=== PATIENT | female | born 1980 | race Two or more races ===

== ENCOUNTER 2022-06-30 09:13 | Emergency (ER) | payer OTHER ==
[~2022-06-30] VITALS: Ht 170.2 cm; Wt 79.4 kg
[2022-06-30 09:23] VITALS: BP 140/94
[2022-06-30] MEDS ORDERED: CYCL5TAB PO (09:54)
[2022-06-30] MEDS ORDERED: IBUP-1955 PO (09:54)
--- NOTE | 2022-06-30 10:11 | NUR ---
Patient discharged to home in stable condition. Written and verbal after care instructions given. Patient verbalizes understanding of instruction.
== END 2022-06-30 10:11 | disposition home or self-care (01) ==
LOC: ER 09:21
DX: S16.1XXA Strain of muscle, fascia and tendon at neck level, initial encounter (principal); S46.911A Strain of unspecified muscle, fascia and tendon at shoulder and upper arm level, right arm, initial encounter; V49.69XA Unspecified car occupant injured in collision with other motor vehicles in traffic accident, initial encounter; Y93.89 Activity, other specified; Y92.413 State road as the place of occurrence of the external cause; Y99.8 Other external cause status

== ENCOUNTER 2023-12-10 11:23 | Emergency (ER) | payer OTHER ==
[~2023-12-10] VITALS: Ht 170.2 cm; Wt 84.8 kg
[~2023-12-10 11:23] MED LIST: CYCL5TAB PO; IBUP-1955 PO
[2023-12-10 11:45] VITALS: BP 134/74; TEMP 98.7
[2023-12-10] MEDS ORDERED: IBUPROFEN 600 MG TABLET PO ONE (12:00)
[2023-12-10] MEDS ORDERED: AMOXICILLIN TRIHYDRATE 500 MG CAPSULE PO ONE (12:00)
[2023-12-10] MEDS ORDERED: AMOXICILLIN TRIHYDRATE 250 MG CAPSULE ONE (12:04)
[2023-12-10] MEDS ORDERED: AMOX500C2 PO (12:04)
[2023-12-10] MEDS ORDERED: IBUPROFEN 600 MG TABLET ONE (12:04)
[2023-12-10 12:21] VITALS: O2SAT 100
== END 2023-12-10 12:22 | disposition home or self-care (01) ==
LOC: ER 11:27
DX: K08.89 Other specified disorders of teeth and supporting structures (principal)